=== PATIENT | male | born 1980 | race Caucasian/White ===

== ENCOUNTER 2020-07-18 11:34 | Inpatient (IN) | payer OTHER ==
[2020-07-18 13:10] VITALS: BMI 26.1
[2020-07-18] MEDS ORDERED: MAGNESIUM HYDROX 2400MG/30ML ORAL SUSPENSION 30 ML CUP PO PRN (14:01)
[2020-07-18] MEDS ORDERED: MAG HYDROX/AL HYDROX/SIMETH 30 ML UNIT-DOSE CUP PO PRN (14:01)
[2020-07-18] MEDS ORDERED: MENTHOL/PHENOL 1 EACH UD MM PRN (14:01)
[2020-07-18] MEDS ORDERED: ONDANSETRON *ODT* 4 MG TABLET SL PRN (14:01)
[2020-07-18] MEDS ORDERED: MAGNESIUM CITRATE 300 ML BOTTLE PO PRN (14:01)
[2020-07-18] MEDS ORDERED: BISMUTH SUBSALICYLATE 524 MG/30 ML UD PO PRN (14:01)
[2020-07-18] MEDS ORDERED: IBUPROFEN 400 MG TABLET (FP) PO PRN (14:01)
[2020-07-18] MEDS ORDERED: NICOTINE POLACRILEX 2 MG GUM BUC PRN (14:01)
[2020-07-18] MEDS ORDERED: cloNIDine HCL 0.1 MG TABLET PO PRN (14:01)
[2020-07-18] MEDS ORDERED: ACETAMINOPHEN 325 MG TABLET (FP) PO PRN ×2 (14:01)
[2020-07-18] MEDS ORDERED: METHADONE HCL 10 MG TABLET (FOR DETOX USE ONLY) PO ONE ×2 (14:04→14:30)
[2020-07-18] MEDS: PRENATAL VITAMINS W/ FOLIC ACID TABLET (FP) PO SCH (15:24)
[2020-07-18 17:58] LABS: HEMATOCRIT 44.1 % (35.4-49); HEMOGLOBIN 14.6 GM/dL (11.7-16.9); MCH 28.8 pg (25.7-33.7); MCHC 33.2 g/dl (32.0-35.9); MEAN CELL VOLUME 86.7 fl (80-96); MEAN PLT VOLUME 8.5 fl (7.5-11.1); PLATELET COUNT 192 K/MM3 (134-434); RBC 5.08 M/mm3 (4.00-5.60); RDW 13.6 % (11.9-15.9); WHITE BLOOD COUNT 5.5 K/mm3 (4.0-10.0)
[2020-07-18 18:01] LABS: POTASSIUM 4.6 mmol/L (3.5-5.1)
[2020-07-18 18:19] LABS: BLOOD UREA NITROGEN 8.5 mg/dL (7-18); CALCIUM 9.1 mg/dL (8.5-10.1)
[2020-07-18 18:22] LABS: BILIRUBIN,TOTAL 0.4 mg/dL (0.2-1); CREATININE 0.7 mg/dL (0.55-1.3)
[2020-07-18 18:24] LABS: TOT PROT 7.1 g/dl (6.4-8.2)
[2020-07-18] MEDS: hydrOXYzine PAMOATE 25 MG CAPSULE (FP) PO SCH ×2 (21:10→22:12)
[2020-07-18] MEDS: THIAMINE HCL 100 MG TABLET (FP) PO SCH (22:11)
[2020-07-18] MEDS: MELATONIN 5 MG TABLETS PO SCH (22:12)
[2020-07-18] MEDS: METHOCARBAMOL 500 MG TABLET PO PRN (22:12)
[2020-07-19] MEDS: hydrOXYzine PAMOATE 25 MG CAPSULE (FP) PO SCH ×5 (05:47→22:01)
[2020-07-19] MEDS ORDERED: METHADONE HCL 5 MG TABLET (FOR DETOX USE ONLY) ONE (09:29)
[2020-07-19] MEDS ORDERED: METHADONE HCL 10 MG TABLET (FOR DETOX USE ONLY) ONE (09:29)
[2020-07-19] MEDS ORDERED: METHADONE (DETOX) 20 MG, METHADONE (DETOX) 5 MG PO ONE (10:00)
[2020-07-19] MEDS: PRENATAL VITAMINS W/ FOLIC ACID TABLET (FP) PO SCH (10:20)
[2020-07-19] MEDS: MELATONIN 5 MG TABLETS PO SCH (22:00)
[2020-07-19] MEDS: THIAMINE HCL 100 MG TABLET (FP) PO SCH (22:01)
[2020-07-20] MEDS: hydrOXYzine PAMOATE 25 MG CAPSULE (FP) PO SCH ×6 (06:07→22:02)
[2020-07-20] MEDS ORDERED: METHADONE HCL 10 MG TABLET (FOR DETOX USE ONLY) PO ONE (10:00)
[2020-07-20] MEDS: PRENATAL VITAMINS W/ FOLIC ACID TABLET (FP) PO SCH (10:06)
[2020-07-20] MEDS: MELATONIN 5 MG TABLETS PO SCH (22:02)
[2020-07-20] MEDS: THIAMINE HCL 100 MG TABLET (FP) PO SCH (22:02)
[2020-07-20] MEDS: METHOCARBAMOL 500 MG TABLET PO PRN (22:03)
[2020-07-21] MEDS: hydrOXYzine PAMOATE 25 MG CAPSULE (FP) PO SCH ×5 (06:56→22:01)
[2020-07-21] MEDS ORDERED: METHADONE HCL 5 MG TABLET (FOR DETOX USE ONLY) ONE (09:28)
[2020-07-21] MEDS ORDERED: METHADONE HCL 10 MG TABLET (FOR DETOX USE ONLY) ONE (09:28)
[2020-07-21] MEDS: PRENATAL VITAMINS W/ FOLIC ACID TABLET (FP) PO SCH (09:46)
[2020-07-21] MEDS: METHOCARBAMOL 500 MG TABLET PO PRN ×2 (09:46→22:01)
[2020-07-21] MEDS ORDERED: METHADONE (DETOX) 10 MG, METHADONE (DETOX) 5 MG PO ONE (10:00)
[2020-07-21] MEDS ORDERED: diazePAM 5 MG TABLET PO PRN (11:02)
[2020-07-21] MEDS: FLUTICASONE PROP 0.05% 16 GM NASAL SPRAY NS SCH ×2 (13:09→22:01)
[2020-07-21] MEDS ORDERED: MASKS NR ONE (18:34)
[2020-07-21] MEDS: MELATONIN 5 MG TABLETS PO SCH (22:01)
[2020-07-21] MEDS: THIAMINE HCL 100 MG TABLET (FP) PO SCH (22:01)
[2020-07-22] MEDS: hydrOXYzine PAMOATE 25 MG CAPSULE (FP) PO SCH ×5 (06:56→22:08)
[2020-07-22] MEDS ORDERED: METHADONE HCL 10 MG TABLET (FOR DETOX USE ONLY) PO ONE (10:00)
[2020-07-22] MEDS: METHOCARBAMOL 500 MG TABLET PO PRN (10:19)
[2020-07-22] MEDS: PRENATAL VITAMINS W/ FOLIC ACID TABLET (FP) PO SCH (10:22)
[2020-07-22] MEDS: FLUTICASONE PROP 0.05% 16 GM NASAL SPRAY NS SCH ×2 (10:22→22:08)
[2020-07-22 14:25] LABS: POTASSIUM 4.9 mmol/L (3.5-5.1)
[2020-07-22 14:34] LABS: ALBUMIN 3.8 g/dl (3.4-5.0); BLOOD UREA NITROGEN 14.5 mg/dL (7-18); CALCIUM 9.2 mg/dL (8.5-10.1)
[2020-07-22 14:38] LABS: CREATININE 0.9 mg/dL (0.55-1.3)
[2020-07-22 14:39] LABS: BILIRUBIN,TOTAL 0.7 mg/dL (0.2-1); TOT PROT 6.8 g/dl (6.4-8.2)
[2020-07-22] MEDS: THIAMINE HCL 100 MG TABLET (FP) PO SCH (22:08)
[2020-07-22] MEDS: MELATONIN 5 MG TABLETS PO SCH (22:08)
[2020-07-23] MEDS ORDERED: METHADONE HCL 5 MG TABLET (FOR DETOX USE ONLY) PO ONE (06:00)
[2020-07-23] MEDS: hydrOXYzine PAMOATE 25 MG CAPSULE (FP) PO SCH ×2 (06:40→10:32)
[2020-07-23 09:50] VITALS: BP 125/81; PULSE 100; TEMP 98.8
[2020-07-23] MEDS: FLUTICASONE PROP 0.05% 16 GM NASAL SPRAY NS SCH (10:32)
[2020-07-23] MEDS: METHOCARBAMOL 500 MG TABLET PO PRN (10:32)
[2020-07-23] MEDS: PRENATAL VITAMINS W/ FOLIC ACID TABLET (FP) PO SCH (10:32)
== END 2020-07-23 11:33 | disposition home or self-care (01) | DRG 773 ==
LOC: YASAS 11:34 → Y6N 13:41
PROVIDERS: ADMIT Allergy & Immunology; ATTEND Allergy & Immunology
PROC: HZ2ZZZZ Detoxification Services for Substance Abuse Treatment (ICD-10-PCS; principal; 2020-07-18)
DX: F11.23 Opioid dependence with withdrawal (principal); F10.20 Alcohol dependence, uncomplicated; F17.210 Nicotine dependence, cigarettes, uncomplicated; E78.5 Hyperlipidemia, unspecified; K40.90 Unilateral inguinal hernia, without obstruction or gangrene, not specified as recurrent; R74.8 Abnormal levels of other serum enzymes; R74.01 Elevation of levels of liver transaminase levels; Z59.0 Homelessness
CPT/HCPCS: 36415; 71046-TC-FY; 80053; 85027; 86780; C9803; J0735; U0003

== ENCOUNTER 2021-01-29 10:19 | Inpatient (IN) | payer OTHER ==
[2021-01-29 11:12] VITALS: BMI 27.8
[2021-01-29] MEDS ORDERED: MAG HYDROX/AL HYDROX/SIMETH 30 ML UNIT-DOSE CUP PO PRN (16:32)
[2021-01-29] MEDS ORDERED: P-EPHED 60MG/TRIPROLIDI 2.5MG TABLET PO PRN (16:32)
[2021-01-29] MEDS ORDERED: MAGNESIUM CITRATE 300 ML BOTTLE PO PRN (16:32)
[2021-01-29] MEDS ORDERED: MELATONIN 5 MG TABLETS PO PRN (16:32)
[2021-01-29] MEDS ORDERED: MAGNESIUM HYDROX 2400MG/30ML ORAL SUSPENSION 30 ML CUP PO PRN (16:32)
[2021-01-29] MEDS ORDERED: NICOTINE 10 MG CARTRIDGE (INHALER) IH PRN (16:32)
[2021-01-29] MEDS ORDERED: guaiFENesin 200 MG/10 ML 10 ML UNIT-DOSE CUPS PO PRN (16:32)
[2021-01-29] MEDS ORDERED: NALOXONE (NARCAN) HCL 4 MG/0.1 ML SPRAY NS PRN (16:32)
[2021-01-29] MEDS ORDERED: IBUPROFEN 400 MG TABLET (FP) PO PRN (16:32)
[2021-01-29] MEDS ORDERED: hydrOXYzine PAMOATE 25 MG CAPSULE (FP) PO PRN (16:32)
[2021-01-29] MEDS ORDERED: LOPERAMIDE HCL 2 MG CAPSULE PO PRN (16:32)
[2021-01-29] MEDS ORDERED: ACETAMINOPHEN 325 MG TABLET (FP) PO PRN (16:32)
[2021-01-29] MEDS ORDERED: cloNIDine HCL 0.1 MG TABLET PO PRN (16:47)
[2021-01-29] MEDS: THIAMINE HCL 100 MG TABLET (FP) PO SCH (22:45)
[2021-01-30 00:47] LABS: PH,URINE 6.5 (5.0-8.0); URINE APPEARANCE CLEAR; URINE BILIRUBIN NEGATIVE (NEGATIVE); URINE COLOR YELLOW; URINE GLUCOSE (UA) NEGATIVE (NEGATIVE); URINE KETONE NEGATIVE (NEGATIVE); URINE LEUK ESTERASE NEGATIVE (NEGATIVE); URINE NITRITE NEGATIVE (NEGATIVE); URINE PROTEIN NEGATIVE (NEGATIVE); URINE UROBILINOGEN 0.2 mg/dL (0.2-1.0)
[2021-01-30] MEDS ORDERED: methaDONE HCL 10 MG TABLET ONE (05:53)
[2021-01-30] MEDS ORDERED: methaDONE HCL 40 MG DISPERSABLE TABLET ONE (05:53)
[2021-01-30] MEDS ORDERED: methaDONE HCL 10 MG TABLET PO SCH (06:00)
[2021-01-30] MEDS: methaDONE 80 MG, methaDONE 20 MG PO SCH (06:25)
[2021-01-30 07:17] VITALS: TEMP 97.8
[2021-01-30] MEDS: PRENATAL VITAMINS W/ FOLIC ACID TABLET (FP) PO SCH (10:40)
[2021-01-30 11:22] LABS: HEMATOCRIT 44.4 % (35.4-49); HEMOGLOBIN 14.8 GM/dL (11.7-16.9); MCHC 33.3 g/dl (32.0-35.9); MEAN CELL VOLUME 87.1 fl (80-96); MEAN PLT VOLUME 8.3 fl (7.5-11.1); PLATELET COUNT 184 10^3/uL (134-434); RDW 13.8 % (11.9-15.9); WHITE BLOOD COUNT 5.2 K/mm3 (4.0-10.0)
[2021-01-30 11:26] LABS: ALBUMIN 3.9 g/dl (3.4-5.0); CALCIUM 9.2 mg/dL (8.5-10.1)
[2021-01-30 11:30] LABS: CREATININE 0.9 mg/dL (0.55-1.3)
[2021-01-30 11:32] LABS: BILIRUBIN,TOTAL 0.4 mg/dL (0.2-1)
[2021-01-30 11:55] LABS: SYPHILIS W/ RPR CONF NON-REACTIVE (NONREACTIVE)
[2021-01-30 12:21] LABS: HIV INTERPRETATION NEGATIVE (NEGATIVE)
[2021-01-30] MEDS: THIAMINE HCL 100 MG TABLET (FP) PO SCH (21:21)
[2021-01-31] MEDS ORDERED: methaDONE HCL 40 MG DISPERSABLE TABLET ONE (03:19)
[2021-01-31] MEDS ORDERED: methaDONE HCL 10 MG TABLET ONE (03:20)
[2021-01-31] MEDS: methaDONE 80 MG, methaDONE 20 MG PO SCH (06:39)
[2021-01-31 07:36] VITALS: BP 115/71; PULSE 56
[2021-01-31] MEDS: PRENATAL VITAMINS W/ FOLIC ACID TABLET (FP) PO SCH (10:55)
== END 2021-01-31 16:10 | disposition left against medical advice (07) | DRG 770 ==
LOC: YASAS 10:19 → Y3W 17:00
PROVIDERS: ADMIT Allergy & Immunology; ATTEND Allergy & Immunology
PROC: HZ2ZZZZ Detoxification Services for Substance Abuse Treatment (ICD-10-PCS; principal; 2021-01-29)
DX: F11.20 Opioid dependence, uncomplicated (principal); F14.20 Cocaine dependence, uncomplicated; F12.20 Cannabis dependence, uncomplicated; F17.210 Nicotine dependence, cigarettes, uncomplicated; F31.9 Bipolar disorder, unspecified; E78.5 Hyperlipidemia, unspecified; R94.31 Abnormal electrocardiogram [ECG] [EKG]; Z59.0 Homelessness
CPT/HCPCS: 36415; 80053; 81003; 85027; 86780; 86803; 87389; 93005; 93010; C9803; U0003; U0005

== ENCOUNTER 2021-08-20 10:48 | Inpatient (IN) | payer OTHER ==
[2021-08-20 11:27] VITALS: BMI 27.4
[2021-08-20] MEDS ORDERED: METHOCARBAMOL 500 MG TABLET PO PRN (12:01)
[2021-08-20] MEDS ORDERED: BISMUTH SUBSALICYLATE 262 MG/15 ML BTL PO PRN (12:01)
[2021-08-20] MEDS ORDERED: LOPERAMIDE HCL 2 MG CAPSULE PO PRN (12:01)
[2021-08-20] MEDS ORDERED: NALOXONE (NARCAN) HCL 4 MG/0.1 ML SPRAY NS PRN (12:01)
[2021-08-20] MEDS ORDERED: cloNIDine HCL 0.1 MG TABLET PO PRN (12:01)
[2021-08-20] MEDS ORDERED: NICOTINE 10 MG CARTRIDGE (INHALER) IH PRN (12:01)
[2021-08-20] MEDS ORDERED: MAGNESIUM HYDROX 2400MG/30ML ORAL SUSPENSION 30 ML CUP PO PRN (12:01)
[2021-08-20] MEDS ORDERED: MENTHOL/PHENOL 1 EACH UD MM PRN (12:01)
[2021-08-20] MEDS ORDERED: MAGNESIUM CITRATE 300 ML BOTTLE PO PRN (12:01)
[2021-08-20] MEDS ORDERED: methaDONE HCL 10 MG TABLET (FOR DETOX USE ONLY) PO ONE (12:01)
[2021-08-20] MEDS ORDERED: MAG HYDROX/AL HYDROX/SIMETH 30 ML UNIT-DOSE CUP PO PRN (12:01)
[2021-08-20] MEDS ORDERED: IBUPROFEN 400 MG TABLET (FP) PO PRN (12:01)
[2021-08-20] MEDS ORDERED: ONDANSETRON *ODT* 4 MG TABLET SL PRN (12:01)
[2021-08-20] MEDS ORDERED: ACETAMINOPHEN 325 MG TABLET (FP) PO PRN ×2 (12:01)
[2021-08-20] MEDS: hydrOXYzine PAMOATE 25 MG CAPSULE (FP) PO SCH ×3 (15:07→21:38)
[2021-08-20] MEDS: THIAMINE HCL 100 MG TABLET (FP) PO SCH (21:38)
[2021-08-20] MEDS: MELATONIN 5 MG TABLETS PO SCH (21:38)
[2021-08-21] MEDS: hydrOXYzine PAMOATE 25 MG CAPSULE (FP) PO SCH ×5 (07:06→22:11)
[2021-08-21] MEDS ORDERED: methaDONE HCL 10 MG TABLET (FOR DETOX USE ONLY) ONE (10:04)
[2021-08-21] MEDS: PRENATAL VITAMINS W/ FOLIC ACID TABLET (FP) PO SCH (10:09)
[2021-08-21 14:32] LABS: HEMATOCRIT 42.4 % (35.4-49); HEMOGLOBIN 14.1 GM/dL (11.7-16.9); MCH 28.2 pg (25.7-33.7); MCHC 33.3 g/dl (32.0-35.9); MEAN CELL VOLUME 84.7 fl (80-96); MEAN PLT VOLUME 8.7 fl (7.5-11.1); PLATELET COUNT 188 10^3/uL (134-434); RDW 13.6 % (11.9-15.9); WHITE BLOOD COUNT 4.2 K/mm3 (4.0-10.0)
[2021-08-21 14:57] LABS: CALCIUM 9.2 mg/dL (8.5-10.1)
[2021-08-21 14:58] LABS: ALBUMIN 3.8 g/dl (3.4-5.0); BLOOD UREA NITROGEN 10.8 mg/dL (7-18)
[2021-08-21 15:01] LABS: CREATININE 0.7 mg/dL (0.55-1.3)
[2021-08-21 15:02] LABS: TOT PROT 6.6 g/dl (6.4-8.2)
[2021-08-21 15:03] LABS: BILIRUBIN,TOTAL 0.6 mg/dL (0.2-1)
[2021-08-21] MEDS: MELATONIN 5 MG TABLETS PO SCH (22:11)
[2021-08-21] MEDS: THIAMINE HCL 100 MG TABLET (FP) PO SCH (22:11)
[2021-08-22] MEDS: hydrOXYzine PAMOATE 25 MG CAPSULE (FP) PO SCH ×2 (06:19→10:28)
[2021-08-22 08:07] LABS: SARS-CoV-2 NAA Not Detected (Not Detected)
[2021-08-22 09:21] VITALS: BP 119/73; PULSE 82; TEMP 96.9
[2021-08-22] MEDS ORDERED: methaDONE HCL 10 MG TABLET (FOR DETOX USE ONLY) PO ONE (10:00)
[2021-08-22] MEDS: PRENATAL VITAMINS W/ FOLIC ACID TABLET (FP) PO SCH (10:28)
[2021-08-24] MEDS ORDERED: methaDONE HCL 10 MG TABLET (FOR DETOX USE ONLY) PO ONE (10:00)
== END 2021-08-22 12:13 | disposition left against medical advice (07) | DRG 770 ==
LOC: YASAS 10:48 → Y3N 14:16
PROVIDERS: ADMIT Allergy & Immunology; ATTEND Allergy & Immunology
PROC: HZ2ZZZZ Detoxification Services for Substance Abuse Treatment (ICD-10-PCS; principal; 2021-08-20)
DX: F11.23 Opioid dependence with withdrawal (principal); F14.20 Cocaine dependence, uncomplicated; F12.20 Cannabis dependence, uncomplicated; F17.210 Nicotine dependence, cigarettes, uncomplicated; F31.9 Bipolar disorder, unspecified; E78.5 Hyperlipidemia, unspecified; Z56.0 Unemployment, unspecified; Z59.00 Homelessness unspecified
CPT/HCPCS: 36415; 80053; 85027; 86780; 87811; C9803-CS; U0003; U0005

== ENCOUNTER 2024-01-24 17:56 | Inpatient (IN) | payer OTHER ==
[2024-01-24 20:10] VITALS: BMI 23.3
[2024-01-24] MEDS ORDERED: LOPERAMIDE HCL 2 MG CAPSULE PO PRN (21:48)
[2024-01-24] MEDS ORDERED: NALOXONE HCL 0.4 MG/ML VIAL IM PRN (21:48)
[2024-01-24] MEDS ORDERED: POLYETHYLENE GLYCOL (HEALTHYLAX) 3350 17 GM PACKET PO PRN (21:48)
[2024-01-24] MEDS ORDERED: MAG HYDROX/AL HYDROX/SIMETH 30 ML UNIT-DOSE CUP PO PRN (21:48)
[2024-01-24] MEDS ORDERED: guaiFENesin 600 MG TABLET.ER (FP) PO PRN (21:48)
[2024-01-24] MEDS ORDERED: IBUPROFEN 400 MG TABLET (FP) PO PRN (21:48)
[2024-01-24] MEDS ORDERED: BENZONATATE 200 MG CAPSULE PO PRN (21:48)
[2024-01-24] MEDS ORDERED: BISMUTH SUBSALICYLATE 524 MG/30 ML PO PRN (21:48)
[2024-01-24] MEDS ORDERED: MAGNESIUM HYDROX 2400MG/30ML ORAL SUSPENSION 30 ML CUP PO PRN (21:48)
[2024-01-24] MEDS ORDERED: NALOXONE (NARCAN) HCL 4 MG/0.1 ML SPRAY NS PRN (21:48)
[2024-01-24] MEDS ORDERED: ACETAMINOPHEN 325 MG TABLET (FP) PO PRN (21:48)
[2024-01-24] MEDS ORDERED: BENZOCAINE/MENTHOL (CHLORASEPTIC ) LOZENGE MM PRN (21:48)
[2024-01-24] MEDS ORDERED: IBUPROFEN 600 MG TABLET (FP) PO PRN (21:48)
[2024-01-24] MEDS ORDERED: DICYCLOMINE HCL 10 MG CAPSULE PO PRN (21:48)
[2024-01-24] MEDS ORDERED: NICOTINE POLACRILEX 2 MG GUM BUC PRN (21:48)
[2024-01-24] MEDS ORDERED: methaDONE HCL 10 MG TABLET (FOR DETOX USE ONLY) ONE (22:17)
[2024-01-24] MEDS: methaDONE HCL 10 MG TABLET (FOR DETOX USE ONLY) PO ONE (22:26)
[2024-01-24] MEDS: MELATONIN 5 MG TABLETS PO SCH (23:36)
[2024-01-24] MEDS: METHOCARBAMOL 500 MG TABLET PO PRN (23:36)
[2024-01-24] MEDS: THIAMINE 100 MG TABLET PO SCH (23:36)
[2024-01-24] MEDS: hydrOXYzine PAMOATE 25 MG CAPSULE (FP) PO PRN (23:38)
[2024-01-25] MEDS: cloNIDine HCL 0.1 MG TABLET PO PRN (10:08)
[2024-01-25] MEDS: PRENATAL VITAMINS W/ FOLIC ACID TABLET (FP) PO SCH (10:08)
[2024-01-25] MEDS: NICOTINE 21 MG/24 HOURS TOPICAL PATCH TD SCH (10:08)
[2024-01-25 11:08] LABS: CHLORIDE 107 mmol/L (98-107); SODIUM 141 mmol/L (136-145)
[2024-01-25 11:13] LABS: ALBUMIN 3.6 g/dl (3.4-5.0); ANION GAP 8 mmol/L (4-13); BLOOD UREA NITROGEN 11.6 mg/dL (7-18); CALCIUM 9.2 mg/dL (8.5-10.1); CO2 27 mmol/L (21-32); GLUCOSE,RANDOM 83 mg/dL (74-106)
[2024-01-25 11:16] LABS: CREATININE 0.7 mg/dL (0.55-1.3); SGOT/AST 19 U/L (15-37); SGPT/ALT 28 U/L (13-61)
[2024-01-25 11:18] LABS: ALK PHOS 73 U/L (45-117); BILIRUBIN,TOTAL 0.5 mg/dL (0.2-1); TOT PROT 6.4 g/dl (6.4-8.2)
[2024-01-25 11:20] LABS: HEMATOCRIT 42.9 % (35.4-49); HEMOGLOBIN 14.7 GM/dL (11.7-16.9); MCH 29.2 pg (25.7-33.7); MCHC 34.3 g/dl (32.0-35.9); MEAN CELL VOLUME 84.9 fl (80-96); MEAN PLT VOLUME 8.3 fl (7.5-11.1); PLATELET COUNT 227 10^3/uL (134-434); RBC 5.05 M/mm3 (4.00-5.60); RDW 13.1 % (11.9-15.9); WHITE BLOOD COUNT 8.6 K/mm3 (4.0-10.0)
[2024-01-26] MEDS: ONDANSETRON *ODT* 4 MG TABLET SL PRN (04:08)
[2024-01-26] MEDS: methaDONE HCL 10 MG TABLET (FOR DETOX USE ONLY) PO ONE (10:04)
[2024-01-26] MEDS: TRIMETHOBENZAMIDE HCL 200MG/2ML INJ IM ONE (17:47)
[2024-01-27 08:47] VITALS: BP 138/86
[2024-01-27 12:54] VITALS: PULSE 89; RESP 17; TEMP 97.4
[2024-01-28] MEDS ORDERED: methaDONE HCL 10 MG TABLET (FOR DETOX USE ONLY) PO ONE (10:00)
== END 2024-01-27 15:40 | disposition left against medical advice (07) | DRG 770 ==
LOC: YASAS 17:56 → Y3N 22:09
PROVIDERS: ADMIT Allergy & Immunology; ATTEND Surgery
PROC: HZ2ZZZZ Detoxification Services for Substance Abuse Treatment (ICD-10-PCS; principal; 2024-01-24)
DX: F11.23 Opioid dependence with withdrawal (principal); F14.20 Cocaine dependence, uncomplicated; F12.20 Cannabis dependence, uncomplicated; F17.210 Nicotine dependence, cigarettes, uncomplicated; F31.9 Bipolar disorder, unspecified; E78.5 Hyperlipidemia, unspecified; R76.11 Nonspecific reaction to tuberculin skin test without active tuberculosis; Z59.01 Sheltered homelessness
CPT/HCPCS: 36415; 80053; 80305; 80307; 85027; 86780; 93005; 93010; Q0162